=== PATIENT | female | born 1945 | race Caucasian/White ===

== ENCOUNTER 2016-10-25 14:06 | Emergency (ER) | payer MEDICARE, MEDICAID ==
[~2016-10-25] VITALS: Ht 152.4 cm; Wt 47.7 kg
[~2016-10-25 14:06] MED LIST: ALBU2.5V4 INHALATION; ASPI-973 PO; ATOR40TA69 PO; CALC600T12 PO; DONE10TA5 PO; LOPE1TAB13 PO; MULT1CAP33 PO; PANT20TA2 PO; PRE10 PO; SYMINH INHALATION; UMEC62.5 IH
[2016-10-25 14:08] VITALS: BP 97/56; PULSE 104; RESP 20; O2SAT 93
--- NOTE | 2016-10-25 15:31 | DRSVH ---
PROCEDURE: X-RAY CHEST, TWO VIEWS ([id number]) INDICATIONS: SHORT OF BREATH TECHNIQUE: 2 views of the chest were acquired. COMPARISON: [facility], CR, XR CHEST 2VW, 07/15/2016, 8:08. [facility], CR, XR CHEST 2VW, 07/12/2016, 8:17. [facility], CR, XR CHEST 2VW, 07/11/2016, 9:37. FINDINGS: Surgical changes and devices: None. Lungs and pleura: No pleural effusions or pneumothorax. Lungs are clear. Mediastinum: Mediastinal contours are normal. Heart size is normal. Bones and chest wall: No suspicious bony abnormalities. Soft tissues appear unremarkable. IMPRESSION: No acute process. Dictated by: Thu Bradley M.D. on 10/25/2016 at 15:30 Approved by: Thu Bradley M.D. on 10/25/2016 at 15:30
[2016-10-25 16:06] LABS: BASOPHILS % (AUTO) 0.4 % (0-3); EOSINOPHILS % (AUTO) 1.7 % (0-5); MONOCYTES % (AUTO) 11.7 % (4-12); Mean Corpuscular Hemoglobin 27.9 pg (27.0-35.0); Mean Corpuscular Volume 90.8 fL (81-100); NEUTROPHILS % (AUTO) 75.5 % (40-74); Platelet Count 370 bil/L (150-400)
[2016-10-25 16:35] LABS: TROPONIN T < 0.010 ug/L (0.0-0.011)
[2016-10-25 16:39] VITALS: BP 119/57; PULSE 87; RESP 20; O2SAT 92
--- NOTE | 2016-10-25 17:16 | ED.REPORT ---
HPI-Dyspnea / Wheezing Date of Service Oct 25, 2016 ED Provider: Doc,Ed MD The patient is a 71 year old female with history of COPD who was sent to the emergency department from urgent care for further evaluation. Over the last few months she has noticed increased work of breathing with any exertion. She is on 2 L oxygen at home 07/03. Lately her O2 saturation decreased to 80-82% on 2 L with minimal exertion. She has also noticed a productive cough. She is a former smoker. She was admitted to the hospital in June of 2016 for a COPD exacerbation. She feels like she has never fully recovered since this hospitalization. She denies chest pain, fever, chills, diaphoresis, vomiting or diarrhea. Nursing Notes Stated Complaint: SOB Chief Complaint: Respiratory Distress Nursing Notes Reviewed: Yes Allergies: Coded Allergies: acetaminophen (Verified Allergy, Unknown, 07/11/16) ibuprofen (Verified Allergy, Unknown, 07/11/16) Scheduled Aspirin (Aspirin) 81 Mg Tablet 81 MG PO DAILY Atorvastatin Calcium (Atorvastatin Calcium) 40 Mg Tablet 40 MG PO HS Budesonide/Formoterol 160-4.5 mcg Inh (Symbicort 160-4.5 mcg Inh) 120 Puff Inhaler 2 PUFFS INHALATION BID Calcium Carbonate (Calcium) 600 Mg Tablet 1,200 MG PO DAILY Donepezil (Aricept) 10 Mg Tablet 10 MG PO 1830 Multivitamin (Multivitamins) 1 Each Capsule 1 EACH PO DAILY Pantoprazole DR (Pantoprazole DR) 20 Mg Tablet.dr 20 MG PO DAILYAC Umeclidinium [place]y (Incruse Ellipta) 62.5 Mcg/Actuation Blst.w.dev 1 PUFF IH DAILY Scheduled PRN Albuterol Neb Soln (Albuterol Neb Soln) 2.5 Mg/3 Ml Vial.neb 2.5 MG INHALATION Q4H PRN PRN For Shortness of Breath Loperamide/Simethicone (Imodium Multi-Symptom Rel Cplt) 1 Each Tablet 1 EACH PO PRN For Diarrhea or Loose Stool Prednisone (PredniSONE) 10 Mg Tablet 10 MG PO DIRECTED PRN PRN For Diarrhea or Loose Stool General Time Seen by MD: 17:16 Chief Complaint Shortness of breath Hx Obtained From: Patient, Daughter Arrived By: Wheelchair Sudden in Onset?: No Onset Occurred: More than a week ago... Symptom Duration: Since onset Location: : None Severity: Current: No pain currently Severity: Maximum: No pain Recent Healthcare: No recent hospitalization, Recent doctor visit Similar Sx Previous: Yes Past Medical History Past Medical History Reports: COPD Family History Noncontributory Smoking History Former Smoker Social History Alcohol Use: Denies alcohol use Drug Use: Denies drug use Other Social History: Good social support, Lives alone, , Local resident Ambulatory Status Independent Review of Systems Constitutional: Denies: Chills, Fever Respiratory: Reports: Dyspnea on exertion, Shortness of breath Cardiovascular: Denies: Chest pain Skin: Denies Diaphoresis Complete sys rev & neg: except as marked. GI: Denies: Diarrhea, Vomiting Physical Exam Initial Vital Signs Vital Signs (First) Date Time Temp Pulse Resp B/P Pulse Ox O2 Delivery O2 Flow Rate FiO2 10/25/16 14:08 37.2 104 20 97/56 93 Nasal Cannula 3 Initial VS: Reviewed Head / Eyes: Atraumatic, Normocephalic, PERRL ENT: Mucous membranes moist, Conjunctiva normal, No scleral icterus Abdomen / GI: Soft, Non-tender, No guarding, No rebound, No distention Extremities: Vascular intact, Neuro intact, No swelling, No tenderness Skin: Warm, Dry, No cyanosis Neurologic: Alert, Oriented, Nonfocal Psychiatric: Mood/affect normal, Behavior normal, Normal thought content General/Constitutional: Awake, Alert Neck: Atraumatic, Supple, No meningismus, Full range of motion, No swelling, Non-tender, No masses Respiratory / Chest: Breath sounds = bilat, No respiratory distress, No rales, No wheezing Diffuse mild rhonchorous breathing. Cardiovascular: Heart rate NL, Regular rhythm, Heart sounds NL, No murmurs, No rubs, Peripheral circulation NL Interpretation & Diagnostics Lab Results Interpretation Result Diagram: 10/25/16 1545 10/25/16 1545 Test 10/25/16 15:45 White Blood Count 8.4th/mm3 (3.8-10.1) Red Blood Count 4.66mil/mm3 (3.90-5.20) Hemoglobin 13.0g/dL (12.0-15.6) Hematocrit 42.3% (35.0-46.0) Mean Corpuscular Volume 90.8fL (81-100) Mean Corpuscular Hemoglobin 27.9pg (27.0-35.0) Mean Corpuscular Hemoglobin Concent 30.7% (32.0-37.0) Red Cell Distribution Width 14.5% (12.3-15.4) Platelet Count 370bil/L (150-400) Neutrophils (%) (Auto) 75.5% (40-74) Lymphocytes (%) (Auto) 10.5% (14-46) Monocytes (%) (Auto) 11.7% (4-12) Eosinophils (%) (Auto) 1.7% (0-5) Basophils (%) (Auto) 0.4% (0-3) Sodium Level 138mEq/L (134-144) Potassium Level 4.5mEq/L (3.5-5.2) Chloride Level 99mEq/L (97-108) Carbon Dioxide Level 24mmol/L (18-29) Blood Urea Nitrogen 21mg/dL (8-27) Creatinine 0.72mg/dL (0.57-1.00) Estimat Glomerular Filtration Rate 114mL/min (>59) Glucose Level 104mg/dL (60-99) Calcium Level 9.1mg/dL (8.5-10.1) Total Bilirubin 0.3mg/dL (0.0-1.2) Aspartate Amino Transf (AST/SGOT) 19U/L (0-50) Alanine Aminotransferase (ALT/SGPT) 18U/L (0-32) Alkaline Phosphatase 82U/L (25-165) Troponin T < 0.010ug/L (0.0-0.011) Pro-B-Type Natriuretic Peptide 134.5pg/mL (0-301) Total Protein 7.7g/dL (6.4-8.4) Albumin 4.1g/dL (3.4-5.0) Hold Garza Top Tube Received (Received) ECG Interpretation ECG Interpretation: Sinus rhythm with a rate of 93 bpm Nonspecific repolarization abnormality, diffuse leads Time: 15:39 Interpreted by: ED physician X-Ray Chest Interpretation Chest Xray Interpretation: IMPRESSION: No acute process. Dictated by: Thu Bradley M.D. on 10/25/2016 at 15:30 Interpretation / Wet Read by: Interpret - Radiologist Re-Eval/Medical Decision Source of Hx: Old records, Family Summary of Info: Echocardiogram Interpretation Summary The left ventricle is normal in size. The ejection fraction is estimated to be 60-65%. The right ventricle is mildly dilated. The right ventricular systolic function is normal. There is trace tricuspid regurgitation. The right ventricular systolic pressure is estimated at 46 mmHg assuming a right atrial pressure of 3 mm Hg. Reading Physician:PM Re-Evaluation/Progress : Time of Eval: 17:27 Re-Evaluation/Progress Note: Discussed results, diagnosis, and plan for discharge. All questions were addressed. Consultation : Referral / Consult Name: Frandy Ricci MD Consulted With: Primary care physician Call Returned at: 17:46 Note: Left a message with her PCP's on-call physician. Counseled Regarding: Diagnosis, Lab results, Need for follow-up, When/why to return to ED Discharge & Departure Impression: Primary Impression: COPD exacerbation Disposition: Home Discharge Condition All VS Reviewed: Yes Condition: Stable Patient Instructions: Chronic Obstructive Pulmonary Disease (ED) Additional Instructions: Thank you for entrusting us with your care today. Your workup today is reassuring. There is no sign of pneumonia at this time. I have written you a prescription for Prednisone for 5 days. Use your inhalers as needed for your breathing. We have left a message with the on-call physician. When you call tomorrow to make an appointment they should make arrangements for you to be seen early this week. If you are having trouble with this please call the emergency department. Please return to the emergency department for any new or concerning symptoms. Referrals: Frandy Ricci MD (PCP) Scribe Attestation Portions of this note were transcribed by Jazmin Henson. I, Dr. Landers personally performed the history, physical exam and medical decision-making; I reviewed and confirmed the accuracy of the information in the transcribed note. Signed by: Jillian Castellon, 10/25/2016 and 1750. copies to: Frandy Ricci MD, Kirk H MD Oct 25, 2016 17:16 Jazmin Henson Oct 25, 2016 17:22
[2016-10-25] MEDS ORDERED: PRE20 PO (17:59)
[2016-10-25] MEDS ORDERED: predniSONE 20 mg Tablet PO ONE (18:00)
[2016-10-25 18:11] VITALS: BP 116/58; PULSE 97; RESP 20; O2SAT 93
== END 2016-10-25 18:12 | disposition home or self-care (01) ==
LOC: SED 14:06
DX: J44.1 Chronic obstructive pulmonary disease with (acute) exacerbation (principal); Z79.82 Long term (current) use of aspirin; Z87.891 Personal history of nicotine dependence; Z88.8 Allergy status to other drugs, medicaments and biological substances